=== PATIENT | male | born 1955 | race Two or more races ===

== ENCOUNTER 2018-08-15 13:13 | Emergency (ER) | payer BC, OTHER ==
[~2018-08-15] VITALS: Ht 172.7 cm; Wt 113.4 kg
[2018-08-15] MEDS ORDERED: NEOMY/BACITRA/POLYMYXIN B OINT UD PACKET TP ONE ×2 (14:31→15:00)
--- NOTE | 2018-08-15 14:46 | NUR ---
Patient discharged to home in stable conditon. Written and verbal after care instructions given to patient. Patient verbalizes understanding of instructions.
== END 2018-08-15 14:49 | disposition home or self-care (01) ==
LOC: ER 13:18
DX: S61.511A Laceration without foreign body of right wrist, initial encounter (principal); S61.219A Laceration without foreign body of unspecified finger without damage to nail, initial encounter; I10 Essential (primary) hypertension; W26.0XXA Contact with knife, initial encounter; Y93.89 Activity, other specified; Y92.89 Other specified places as the place of occurrence of the external cause; Y99.8 Other external cause status
CPT/HCPCS: A4217; A4663